=== PATIENT | female | born 1980 | race Caucasian/White ===

== ENCOUNTER 2016-06-28 21:25 | Emergency (ER) | payer MEDICAID ==
[2016-06-28 21:34] VITALS: BP 126/78
== END 2016-06-28 23:36 | disposition left against medical advice (07) ==
LOC: ED 21:25
DX: M53.3 Sacrococcygeal disorders, not elsewhere classified (principal); J02.9 Acute pharyngitis, unspecified; M79.1 Myalgia; Z88.0 Allergy status to penicillin; F41.9 Anxiety disorder, unspecified
CPT/HCPCS: J1100; J1885